=== PATIENT | female | born 1985 | race Caucasian/White ===

== ENCOUNTER 2017-07-17 07:27 | Observation (INO) ==
--- NOTE | 2017-07-17 07:32 | Emergency Department Note ---
Overdose - Lab Data Lab results reviewed: Yes I reviewed the patient's lab results. Result diagrams: 07/17/17 07:44 07/17/17 07:44 Lab Results 07/17/17 07/17/17 07/17/17 Range/Units 07:44 07:44 07:44 WBC 17.2 H (4.3-11.1) K/mcL RBC 4.32 (3.82-4.97) M/mcL Hgb 13.1 (11.5-15.4) g/dL Hct 40.7 (35.3-44.9) % MCV 94.2 (83.0-100.0) fL MCH 30.3 (28.0-33.3) pg MCHC 32.2 (31.6-35.5) g/dL RDW 12.9 (11.5-14.5) % Plt Count 260 (140-400) K/mcL MPV 9.4 (9.4-12.4) fL Immature Gran % 0.7 (0-4) % Seg Neutrophils % 87.7 % Lymphocytes % 7.3 % Monocytes % 3.7 % Eosinophils % 0.4 % Basophils % 0.2 % Neutrophils # 15.1 H (1.6-8.9) K/mcL Lymphocytes # 1.3 (0.6-4.6) K/mcL Monocytes # 0.6 (0.0-1.3) K/mcL Eosinophils # 0.1 (0.0-0.6) K/mcL Basophils # 0.0 (0.0-0.2) K/mcL Sodium 138 (136-145) mEq/L Potassium 3.6 (3.5-4.5) mEq/L Chloride 99 (98-109) mEq/L Carbon Dioxide 23 (19-29) mEq/L BUN 18 (7-20) mg/dL Creatinine 1.02 (0.57-1.11) mg/dL Est GFR ( Amer) > 60 (> 60) Est GFR (Non-Af Amer) > 60 (> 60) BUN/Creatinine Ratio 18 (6-26) Glucose 243 H (70-99) mg/dL Calculated Osmolality 296 (280-300) Calcium 9.1 (8.6-10.8) mg/dL Total Bilirubin 0.5 (0.2-1.2) mg/dL Direct Bilirubin 0.2 (0.0-0.5) mg/dL Indirect Bilirubin 0.3 (0.0-1.2) mg/dL AST 28 (5-34) Units/L ALT 23 (0-55) Units/L Alkaline Phosphatase 45 (38-126) Units/L Serum Total Protein 7.8 (6.0-8.3) g/dL Albumin 4.3 (3.5-5.0) g/dL Globulin 3.5 (2.4-3.5) g/dL Albumin/Globulin Ratio 1.2 (1.1-2.2) Serum , Qual Negative (Negative) Urine Color (Yellow) Urine Clarity (Clear) Urine pH (5.0-8.0) pH Units Ur Specific [place] (1.010-1.025) Urine Protein (Neg-Trace) mg/dL Urine Glucose (UA) (Normal) mg/dL Urine Ketones (Negative) mg/dL Urine Blood (Negative) Urine Nitrite (Negative) Urine Bilirubin (Negative) Urine Urobilinogen (Normal) mg/dL Ur Leukocyte Esterase (Negative) Urine Microscopic RBC (0-3) per hpf Urine Microscopic WBC (0-3) per hpf Ur Squamous Epith Cells (None-Few) per lpf Urine Bacteria (None-Few) per hpf Salicylates < 5.0 L (15-30) mg/dL Urine Opiates Screen (Ttjjxg=482) ng/mL Acetaminophen < 1.0 L (10-30) mcg/mL Ur Barbiturates Screen (Heljfz=449) ng/mL Ur Phencyclidine Scrn (Cutoff=25) ng/mL Ur Amphetamines Screen (Zmbshh=8617) ng/mL U Benzodiazepines Scrn (Zbsmnp=328) ng/mL Urine Cocaine Screen (Cutoff= 300) ng/mL U Marijuana (THC) Screen (Cutoff = 50) ng/mL Ethyl Alcohol < 10 (0-10) mg/dL 07/17/17 07/17/17 Range/Units 08:00 08:00 WBC (4.3-11.1) K/mcL RBC (3.82-4.97) M/mcL Hgb (11.5-15.4) g/dL Hct (35.3-44.9) % MCV (83.0-100.0) fL MCH (28.0-33.3) pg MCHC (31.6-35.5) g/dL RDW (11.5-14.5) % Plt Count (140-400) K/mcL MPV (9.4-12.4) fL Immature Gran % (0-4) % Seg Neutrophils % % Lymphocytes % % Monocytes % % Eosinophils % % Basophils % % Neutrophils # (1.6-8.9) K/mcL Lymphocytes # (0.6-4.6) K/mcL Monocytes # (0.0-1.3) K/mcL Eosinophils # (0.0-0.6) K/mcL Basophils # (0.0-0.2) K/mcL Sodium (136-145) mEq/L Potassium (3.5-4.5) mEq/L Chloride (98-109) mEq/L Carbon Dioxide (19-29) mEq/L BUN (7-20) mg/dL Creatinine (0.57-1.11) mg/dL Est GFR ( Amer) (> 60) Est GFR (Non-Af Amer) (> 60) BUN/Creatinine Ratio (6-26) Glucose (70-99) mg/dL Calculated Osmolality (280-300) Calcium (8.6-10.8) mg/dL Total Bilirubin (0.2-1.2) mg/dL Direct Bilirubin (0.0-0.5) mg/dL Indirect Bilirubin (0.0-1.2) mg/dL AST (5-34) Units/L ALT (0-55) Units/L Alkaline Phosphatase (38-126) Units/L Serum Total Protein (6.0-8.3) g/dL Albumin (3.5-5.0) g/dL Globulin (2.4-3.5) g/dL Albumin/Globulin Ratio (1.1-2.2) Serum , Qual (Negative) Urine Color Yellow (Yellow) Urine Clarity Turbid A (Clear) Urine pH 6.0 (5.0-8.0) pH Units Ur Specific [place] > 1.030 H (1.010-1.025) Urine Protein 100 H (Neg-Trace) mg/dL Urine Glucose (UA) 500 H (Normal) mg/dL Urine Ketones Negative (Negative) mg/dL Urine Blood Small H (Negative) Urine Nitrite Negative (Negative) Urine Bilirubin Negative (Negative) Urine Urobilinogen Normal (Normal) mg/dL Ur Leukocyte Esterase Negative (Negative) Urine Microscopic RBC 3-5 H (0-3) per hpf Urine Microscopic WBC 3-5 H (0-3) per hpf Ur Squamous Epith Cells Many H (None-Few) per lpf Urine Bacteria Many H (None-Few) per hpf Salicylates (15-30) mg/dL Urine Opiates Screen Negative (Ajkxoh=881) ng/mL Acetaminophen (10-30) mcg/mL Ur Barbiturates Screen Negative (Tdgaog=734) ng/mL Ur Phencyclidine Scrn Negative (Cutoff=25) ng/mL Ur Amphetamines Screen Negative (Ogkyhh=3524) ng/mL U Benzodiazepines Scrn Negative (Qyphov=330) ng/mL Urine Cocaine Screen Positive H (Cutoff= 300) ng/mL U Marijuana (THC) Screen Negative (Cutoff = 50) ng/mL Ethyl Alcohol (0-10) mg/dL - Radiology Data Radiology results reviewed: Yes I reviewed the patient's radiology results. Head CT 07/17/17 11:09 IMPRESSION: No acute intracranial abnormality. D/ / Elpidio Lyle MD / Elpidio Lyle MD Interpreting Provider: Elpidio Lyle MD - EKG Data EKG attestation: Yes I reviewed and interpreted this EKG. EKG shows normal: sinus rhythm Rate: normal Rhythm: NSR Interpretation: no acute changes Overdose HPI - General Chief Complaint: ED Overdose Stated Complaint: OD Time Seen by Provider: 07/17/17 07:29 Source: patient, EMS Mode of arrival: EMS Limitations: no limitations Nursing Notes Reviewed: Yes Vital Signs Reviewed: Yes - History of Present Illness HPI Narrative: 32-year-old female has a history of drug use states has not used heroin in over 5 years is on Subutex was found unresponsive by her boyfriend augustusad was called on their arrival patient was unresponsive was given Narcan and she woke up. She states she does not know how she would have gotten the opiates although she was in a group of people and states that maybe somebody slipped her something. 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 Timing confirmed by: caregiver Intent: unknown How Overdose Was Discovered: called family/friend Treatments Prior to Arrival: narcan - Related Data Home Medications Medication Instructions Recorded Confirmed Buprenorphine HCl/Naloxone HCl 1 each SL DAILY 05/12/16 07/13/16 [Suboxone 8 mg-2 mg Sl Film] Mucinex 05/16/17 Tylenol 05/16/17 Previous Rx's Medication Instructions Recorded Albuterol Sulfate [Ventolin Hfa] 2 puff IH Q4-6H PRN #1 hfa.[id number].[id number] 05/16/17 Benzonatate [Tessalon] 200 mg PO TID PRN #30 capsule 05/16/17 Ibuprofen [Motrin] 600 mg PO Q6-8H PRN #30 tab 05/16/17 Phenazopyridine HCl [Pyridium] 200 mg PO TIDAC #30 tab 05/16/17 Sulfamethoxazole/Trimeth DS 1 each PO BID #20 tablet 05/16/17 [Bactrim DS] Allergies Allergy/AdvReac Type Severity Reaction Status Date / Time Penicillins Allergy Rash Verified 05/16/17 16:11 prednisone AdvReac Abdominal Verified 05/16/17 16:11 Pain All systems ED: reviewed and negative except as stated. Constitutional: Denies: fever, chills, weakness, weight change Eyes: Denies: eye pain, eye discharge, vision change ENT ED: Denies: ear pain, throat pain, dental pain, hearing loss, epistaxis, congestion, dysphagia Cardiovascular: Denies: chest pain, palpitations, dyspnea on exertion, edema, syncope Respiratory: Denies: cough, dyspnea, wheezes, hemoptysis, stridor Gastrointestinal: Denies: abdominal pain, nausea, vomiting, diarrhea, constipation, hematemesis, melena, hematochezia Genitourinary: Denies: dysuria, frequency, hematuria, discharge Musculoskeletal: Denies: back pain, neck pain, arthralgia, myalgia Integumentary: Denies: rash, abrasion, lesions Neurological: Denies: headache, weakness, numbness, paresthesias, confusion, abnormal gait, vertigo Psychiatric: Denies: anxiety, depression, suicidal thoughts, homicidal thoughts , auditory hallucinations, visual hallucinations Endocrine: Denies: fatigue Hematological/Lymphatic: Denies: easy bleeding, easy bruising Allergic/Immunologic: Denies: facial swelling, urticaria Past Medical History - Past Medical History Medical history: Reports: non-contributory Surgical history: Reports: no surgical history Psychiatric history: Reports: no psych history SUPERVISOR TOY ASSEMBLY history: Reports: no SUPERVISOR TOY ASSEMBLY history - Social History Smoking Status: Current every day smoker Smokeless Tobacco Status: No Alcohol use: Reports: none Drug use: Reports: other (opiate abuse; taking Buprenorphine) Physical Exam - General Limitations: no limitations General appearance: alert, in no apparent distress - Head Head exam: atraumatic, normocephalic, normal inspection - Eye Eye exam: Present: normal appearance, PERRL, EOMI - ENT ENT exam: normal exam, normal oropharynx, mucous membranes moist - Neck Neck exam: Present: normal inspection, full ROM, trachea midline - Chest Chest inspection: Present: normal inspection, symmetric chest wall rise - Respiratory Respiratory exam: Present: normal lung sounds bilaterally - Cardiovascular Cardiovascular exam: Present: regular rate, normal rhythm, normal heart sounds - Abdominal Exam Abdominal exam: Present: soft, Non-Tender. Absent: tenderness, distention, guarding, rebound, rigidity - Extremities Exam Extremities exam: Present: normal inspection, full ROM. Absent: tenderness, pedal edema - Expanded Lower Extremity Exam Neurovascular/Tendon exam: Absent: motor deficit, sensory deficit, tendon deficit Gait: observed and normal - Back Exam Back exam: Present: normal inspection, full ROM. Absent: tenderness - Neurological Exam Neurological exam: Present: alert, oriented X3 - Psychiatric Psychiatric exam: Present: normal affect, normal mood - Skin Skin exam: Present: warm, dry, intact, normal color Course - Reevaluation(s) Reevaluation #1: 32-year-old who apparently overdosed on cocaine comes in pretty somnolent. Was given Narcan by the squad which apparently woke her up. She continues to be pretty somnolent she will arouse blower to go ahead and admit her. Time: 11:46 - Consultations Consultation #1: Discussed with Dr. Lewis, admit. Time: 11:46 Vital Signs Temperature 97.5 F L 07/17/17 07:28 Pulse Rate 103 07/17/17 07:28 Respiratory Rate 20 07/17/17 07:28 Blood Pressure 132/105 07/17/17 07:28 O2 Sat by Pulse Oximetry 99 07/17/17 07:28 Temperature 97.5 F L 07/17/17 07:28 Pulse Rate 91 07/17/17 11:05 Respiratory Rate 12 07/17/17 11:05 Blood Pressure 103/62 07/17/17 11:05 O2 Sat by Pulse Oximetry 98 07/17/17 11:05 Oxygen Delivery Oxygen Delivery Room Air Disposition Clinical Impression: Cocaine intoxication Qualifiers: Complication of substance-induced condition: uncomplicated Qualified Code(s): F14.920 - Cocaine use, unspecified with intoxication, uncomplicated Disposition: Admitted As Inpatient Condition: Fair Referrals: NONE,PCP [Primary Care Provider] - Forms: ED Satisfaction Letter Time of Disposition: 11:48
[2017-07-17 07:51] LABS: Basophils % 0.2 %; Eosinophils # 0.1 K/mcL (0.0-0.6); Eosinophils % 0.4 %; Hematocrit 40.7 % (35.3-44.9); Hemoglobin 13.1 g/dL (11.5-15.4); Immature Granulocytes % 0.7 % (0-4); Lymphocytes # 1.3 K/mcL (0.6-4.6); Lymphocytes % 7.3 %; Mean Corpuscular HGB Conc 32.2 g/dL (31.6-35.5); Mean Corpuscular Hemoglobin 30.3 pg (28.0-33.3); Mean Corpuscular Volume 94.2 fL (83.0-100.0); Mean Platelet Volume 9.4 fL (9.4-12.4); Monocytes # 0.6 K/mcL (0.0-1.3); Monocytes % 3.7 %; Neutrophils # 15.1 K/mcL (1.6-8.9); Platelet Count 260 K/mcL (140-400); Red Blood Count 4.32 M/mcL (3.82-4.97); Red Cell Distribution Width 12.9 % (11.5-14.5); Segmented Neutrophils % 87.7 %
[2017-07-17 08:03] LABS: Alanine Aminotransferase 23 Units/L (0-55); Albumin 4.3 g/dL (3.5-5.0); Albumin/Globulin Ratio 1.2 (1.1-2.2); Alkaline Phosphatase 45 Units/L (38-126); Aspartate Amino Transferase 28 Units/L (5-34); BUN/Creatinine Ratio 18 (6-26); Bilirubin,Direct 0.2 mg/dL (0.0-0.5); Bilirubin,Indirect 0.3 mg/dL (0.0-1.2); Bilirubin,Total 0.5 mg/dL (0.2-1.2); Blood Urea Nitrogen 18 mg/dL (7-20); Calcium 9.1 mg/dL (8.6-10.8); Carbon Dioxide 23 mEq/L (19-29); Chloride 99 mEq/L (98-109); Globulin 3.5 g/dL (2.4-3.5); Glucose 243 mg/dL (70-99); Osmolality,Calculated 296 (280-300); Potassium 3.6 mEq/L (3.5-4.5); Sodium 138 mEq/L (136-145); Total Protein 7.8 g/dL (6.0-8.3); eGFR For African Americans > 60 (> 60); eGFR For Non-African Americans > 60 (> 60)
[2017-07-17 08:06] LABS: Acetaminophen < 1.0 mcg/mL (10-30); Ethanol < 10 mg/dL (0-10); Salicylate < 5.0 mg/dL (15-30)
[2017-07-17 08:13] LABS: Bilirubin,Urine Negative (Negative); Blood,Urine Small (Negative); Clarity,Urine Turbid (Clear); Color,Urine Yellow (Yellow); Glucose,Urine (UA) 500 mg/dL (Normal); Ketones,Urine Negative (Negative); Leukocyte Esterase,Urine Negative (Negative); Nitrite,Urine Negative (Negative); Protein,Urine 100 mg/dL (Neg-Trace); Specific Gravity,Urine > 1.030 (1.010-1.025); Urobilinogen,Urine Normal (Normal)
[2017-07-17 08:16] LABS: Squamous Epithelial Cell,Urine Many per lpf (None-Few)
[2017-07-17 08:19] LABS: Amphetamine Screen,Urine Negative ng/mL (Cutoff=1000); Barbiturate Screen,Urine Negative ng/mL (Cutoff=200); Benzodiazepines Screen,Urine Negative ng/mL (Cutoff=200); Cannabinoid Screen,Urine Negative ng/mL (Cutoff = 50); Cocaine Screen,Urine Positive ng/mL (Cutoff= 300); Opiate Screen,Urine Negative ng/mL (Cutoff=300); Phencyclidine Screen,Urine Negative ng/mL (Cutoff=25)
[2017-07-17 08:32] LABS: Bacteria,Urine Many per hpf (None-Few)
[2017-07-17] MEDS ORDERED: Ondansetron ODT 4 MG TAB.RAPDIS SL ONE ×2 (09:06→10:02)
--- NOTE | 2017-07-17 15:59 | Internal Med History&Physical ---
Date of Encounter: 07/17/17 Time of Encounter: 15:55 Assessment and Plan (1) Cocaine intoxication Current visit: Yes Status: Acute 32/female Had multiple previous hospitalization for drug overdose. Was recently taking treatment from drug rehabilitation program. 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 After work she was with her friends where she sniffed cocaine. Family is keen to test her for possibility of a fentanyl She was lethargic, drowsy and unable to protect her self in the emergency room and that is the reason she was hospitalized as per the request of emergency room. Patient is alert and awake now. She is alert and oriented 3 now Family requested to keep her overnight. Plan: We will admit her as observation. We will resume home medication. Intravenous fluids normal saline 70 mL/h. Close observation. We will get social media marketer to evaluate and discuss the option regarding rehabilitation programs. Qualifiers: Complication of substance-induced condition: with delirium Qualified Code(s ): F14.921 - Cocaine use, unspecified with intoxication delirium (2) Urinary tract infection Current visit: Yes Status: Acute We will do blood cultures/urine culture. We will start her on IV ceftriaxone. Qualifiers: Urinary tract infection type: acute cystitis Hematuria presence: without hematuria Qualified Code(s): N30.00 - Acute cystitis without hematuria (3) DVT prophylaxis Current visit: Yes Status: Acute SCD Lizabeth decision making: This patient is a [id number] risk of worsening in spite of being on appropriate treatment due to the underlying complex drug multiple overdoses in the past Internal Medicine - H&P: HPI Chief complaint: Drug overdose Admitted From: Emergency Dept Plans for Post Hospital Care: Home History of present illness: Ms. Clemente is a 32 year old female, who does not have a primary care doctor. For the past 6 years patient has multiple times hospitalization for drug overdose. Since 2012 she has not injected any drugs like cocaine/meth/ fentanyl. She was in the rehabilitation program recently. 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 Yesterday after completion of work, she was with her friends and at that time she had tried cocaine after few months of gap. Patient claims that after that episode she does not remember anything and she woke up in the emergency department. Patient 's parents were in the room and as per the patient's parents, friends call 911 as she was completely knocked out after sniffing the cocaine. Patient was taught to the emergency room, basic labs were drawn, CT scan of the head was done which was negative for any acute events. Patient was supposed to go home but in view of the persistent drowsiness emergency room requested to admit the patient for overnight observation. Patient also claims that she has a occasional dysuria. I asked charge nurse Ms. Sewell to talk to patient regarding his is a possibility of a trafficking? Ms. Sewell had extensive chat with the patient and patient denied for the same. Patient is active smoker Family history: Noncontributory Past Med Surg Social Fam HX - Past Medical History Medical history: non-contributory Psychiatric history: no psych history - Past Surgical History Surgical History: no surgical history - Social History Smoking Status: Current every day smoker Smokeless Tobacco Status: No Alcohol use: none Drug use: other (opiate abuse; taking Buprenorphine) Internal Medicine - H&P: Meds Buprenorphine HCl [Subutex] 8 mg SL BID 07/17/17 [History] 3 Allergy/AdvReac Type Severity Reaction Status Date / Time Penicillins Allergy Rash Verified 05/16/17 16:11 prednisone AdvReac Abdominal Verified 05/16/17 16:11 Pain All Systems PM: A 10-system review of systems was performed and is negative for pertinent findings except as documented above in the HPI. - Constitutional Constitutional: chills, excessive sweating, fatigue, night sweats, weakness, no fever(s) - EENT Eyes: no change in vision, no discharge, no pain, no photophobia Ears: no ear discharge, no ear pain, no tinnitus Nose, mouth and throat: no dysphagia, no nasal discharge, no neck pain, no sore throat - Cardiovascular Cardiovascular ROS IM: no chest pain, no diaphoresis, no dyspnea, no lightheadedness, no palpitations, no syncope - Respiratory Respiratory: no cough, no dyspnea, no wheezing, no excessive phlegm production - Gastrointestinal Gastrointestinal: no abdominal pain, no diarrhea, no hematemesis, no hematochezia, no melena, no nausea, no vomiting - Genitourinary Genitourinary: no change in urinary stream, no dysuria, no flank pain, no hematuria - Musculoskeletal Musculoskeletal ROS IM: no numbness, no tingling - Integumentary Integumentary IM: no rash, no unusual bruising - Neurological Neurological ROS: no confusion, no convulsions, no focal weakness, no numbness, no tingling, no tremor(s) - Hematologic/Lymphatic Hematologic/Lymphatic: no easy bruising - Constitutional Vitals: Temp Pulse Resp BP Pulse Ox 99.3 F 76 16 93/52 96 07/17/17 15:52 07/17/17 15:52 07/17/17 15:52 07/17/17 15:52 07/17/17 15:52 General appearance: Present: A&O X 3, pleasant, no acute distress, answers questions appropriately - Head Head exam: Present: atraumatic, normocephalic - Eye Eye exam: Present: PERRL, conjuntiva pink, sclera anicteric Pupils: Present: PERRL - Neck Neck exam general surgery: Present: supple, trachea midline. Absent: lymphadenopathy - Respiratory Respiratory exam: Present: CTAB. Absent: accessory muscle use, rales, rhonchi, wheezes - Cardiovascular Cardiovascular exam: Present: RRR, +S1, +S2. Absent: diastolic murmur, gallop, rubs, systolic murmur - GI/Abdominal GI/Abdominal exam: Present: normal bowel sounds, soft, no peritoneal signs. Absent: distended, tenderness - Extremities Exam Extremities exam: Present: warm, radial pulses palpable and symmetrical. Absent : calf tenderness, cyanotic, pedal edema - Neurological Exam Neurological exam: Present: CN II-XII intact, oriented X3, no focal deficits. Absent: pronater drift, facial droop, speech deficit - Skin Skin exam: Present: dry, intact Internal Med - H&P Results - Labs CBC & Chem 7: 07/17/17 07:44 07/17/17 07:44
[2017-07-17] MEDS ORDERED: Acetaminophen 325 MG TABLET PO PRN (17:25)
[2017-07-17] MEDS ORDERED: Naloxone 0.4 MG/ML INJ IVP PRN (17:25)
[2017-07-17] MEDS ORDERED: 0.9 % Sodium Chloride 1,000 ML IVC SCH (17:30)
[2017-07-17] MEDS ORDERED: Levofloxacin 500 MG/100 ML 500 MG/100 ML BAG IVPB SCH (18:00)
[2017-07-17] MEDS: Nicotine 14 MG PATCH.TD24 TD SCH (18:16)
[2017-07-17] MEDS: *HR* Buprenorphine HCl 8 MG TAB.SUBL SL SCH (21:42)
[2017-07-18 05:02] LABS: Basophils # 0.1 K/mcL (0.0-0.2); Basophils % 0.6 %; Eosinophils # 0.4 K/mcL (0.0-0.6); Eosinophils % 4.9 %; Hematocrit 33.7 % (35.3-44.9); Immature Granulocytes % 0.4 % (0-4); Lymphocytes # 2.6 K/mcL (0.6-4.6); Mean Corpuscular HGB Conc 32.9 g/dL (31.6-35.5); Mean Corpuscular Hemoglobin 30.4 pg (28.0-33.3); Mean Corpuscular Volume 92.3 fL (83.0-100.0); Mean Platelet Volume 9.3 fL (9.4-12.4); Monocytes # 0.7 K/mcL (0.0-1.3); Monocytes % 8.7 %; Platelet Count 194 K/mcL (140-400); Red Blood Count 3.65 M/mcL (3.82-4.97); Segmented Neutrophils % 51.4 %
[2017-07-18 05:19] LABS: Hemoglobin 11.1 g/dL (11.5-15.4)
[2017-07-18 05:27] LABS: Alanine Aminotransferase 23 Units/L (0-55); Albumin/Globulin Ratio 1.2 (1.1-2.2); Alkaline Phosphatase 36 Units/L (38-126); Aspartate Amino Transferase 22 Units/L (5-34); BUN/Creatinine Ratio 26 (6-26); Bilirubin,Total 0.2 mg/dL (0.2-1.2); Blood Urea Nitrogen 22 mg/dL (7-20); Calcium 8.9 mg/dL (8.6-10.8); Carbon Dioxide 31 mEq/L (19-29); Chloride 102 mEq/L (98-109); Chol/HDL Ratio 2.4 (0-4.9); Cholesterol 105 mg/dL (< 200); Globulin 2.7 g/dL (2.4-3.5); Glucose 132 mg/dL (70-99); HDL Cholesterol 44 mg/dL (40-59); LDL Cholesterol,Calculated 44 mg/dL (0-99); Osmolality,Calculated 293 (280-300); Potassium 3.7 mEq/L (3.5-4.5); Sodium 139 mEq/L (136-145); Triglycerides 87 mg/dL (< 150); eGFR For African Americans > 60 (> 60); eGFR For Non-African Americans > 60 (> 60)
[2017-07-18 05:29] LABS: Albumin 3.3 g/dL (3.5-5.0)
[2017-07-18] MEDS: *HR* Buprenorphine HCl 8 MG TAB.SUBL SL SCH (11:16)
[2017-07-18] MEDS: Nicotine 14 MG PATCH.TD24 TD SCH (11:16)
[2017-07-18 14:49] VITALS: BP 100/63
--- NOTE | 2017-07-18 17:40 | Neurology - Consult Note ---
Date of Encounter: 07/18/17 Time of Encounter: 17:37 Assessment and Plan (1) Facial numbness Current Visit: Yes Status: Acute I believe that numbness that this patient is experiencing in the region of the forehead traveling back to the vertex is due to injury of the supraorbital nerve. I believe been compressed secondary to her eyeglasses maybe when she was unconscious. In regard to the numbness is beginning to resolve. I would expect that over time she should get full resolution. I seen no evidence to suggest a more proximal lesion involving the superior orbital fissure, cavernous sinus or brainstem. CT scan of the head was negative. Neurologic examination was only positive for the supraorbital nerve injury otherwise negative. She can be discharged home at your discretion. No additional follow- up or testing or necessary at this juncture. History of Present Illness HPI: Ms. Clemente is a 32 year old female who was seen for neurologic evaluation secondary to numbness and paresthesia of the right forehead. She has had multiple previous hospitalizations secondary to a drug overdoses. She admits that yesterday she was working in a [employer] after which she friends apparently did some cocaine. Afterwards she was lethargic drowsy and was brought to the ED for rapid assessment. She was hospitalized for observation. She is currently back to baseline status however she is concerned about paresthesia of the right forehead going back to about the vertex. She denies any other cranial nerve abnormalities denies numbness tingling or weakness of the arms or legs denies any difficulty with strength balance or coordination. Denies headache. After examining her identified some tenderness in the right supraorbital notch. I suspect that whenever she was unconscious unconscious her eyeglasses may have inadvertently pressed on the fossa and injured the nerve. She already feels however that it is somewhat resolving. She did have a CT scan of the head which was unremarkable. Past Med Surg Social Fam HX - Past Medical History Medical history: non-contributory Psychiatric history: no psych history - Past Surgical History Surgical History: no surgical history - Social History Smoking Status: Current every day smoker Smokeless Tobacco Status: No Alcohol use: none Drug use: cocaine, methamphetamine, IV Drug Use, other Medications and Allergies Buprenorphine HCl [Subutex] 8 mg SL BID 07/17/17 [History] 3 Allergy/AdvReac Type Severity Reaction Status Date / Time Penicillins Allergy Rash Verified 05/16/17 16:11 prednisone AdvReac Abdominal Verified 05/16/17 16:11 Pain All Systems: A 10-system review of systems was performed and is negative for pertinent findings except as documented above in the HPI. Review of Systems: Review of systems is consistent with a history of present illness otherwise negative. Physical Examination - Vital Signs Vital Signs: Initial Vital Signs Temp Pulse Resp BP Pulse Ox 97.5 F L 103 20 132/105 99 07/17/17 07:28 07/17/17 07:28 07/17/17 07:28 07/17/17 07:28 07/17/17 07:28 - Neurologic Detailed motor examination: full strength in all major muscle groups Motor examination - right side: 5/5: deltoids, biceps, triceps, wrist flexion, wrist extension, hydroelectric plant mechanical engineer, hip flexors, tibialis Anterior, quadriceps, toe extension (EHL), plantarflexion Motor examination - left side: 5/5: deltoids, biceps, triceps, wrist flexion, wrist extension, hip flexors, hydroelectric plant mechanical engineer, quadriceps, tibialis Anterior, toe extension (EHL), plantarflexion Mental Status Examination: awake, alert, oriented to person, oriented to place, oriented to time, follows commands appropriately, answers questions appropriately, no agnosia, no aphasia, no aproxia Cranial nerve examination: PERRL, EOMI, visual garrido intact, corneal reflexes brisk symmetrically, mastication intact, no facial asymmetry is present, no dysarthria, hearing is intact symmetrically, soft palate elevates bilaterally upon phonation, gag reflex intact, flexes SCM and trapezius muscles symmetrically with full power, tongue protrudes midline, no atrophy or facial fasiculations present Cranial Nerve Exam: facial hypesthesia: Right (Primarily in the right forehead traveling back to the vertex in the region of the supraorbital nerve.) Cerebellar examination: no dysmetria, performs finger to nose and heel to rivera symmetrically without ataxia, no gait ataxia, no truncal ataxia, no difficulty with rapid alternating movements Results - Laboratory Findings CBC and BMP: 07/18/17 04:51 07/18/17 04:51 Abnormal lab findings: Abnormal lab results RBC 3.65 M/mcL (3.82-4.97) L 07/18/17 04:51 Hgb 11.1 g/dL (11.5-15.4) L D 07/18/17 04:51 Hct 33.7 % (35.3-44.9) L 07/18/17 04:51 MPV 9.3 fL (9.4-12.4) L 07/18/17 04:51 Carbon Dioxide 31 mEq/L (19-29) H 07/18/17 04:51 BUN 22 mg/dL (7-20) H 07/18/17 04:51 Glucose 132 mg/dL (70-99) H 07/18/17 04:51 Alkaline Phosphatase 36 Units/L (38-126) L 07/18/17 04:51 Albumin 3.3 g/dL (3.5-5.0) L D 07/18/17 04:51 Urine Clarity Turbid (Clear) A 07/17/17 08:00 Ur Specific [place] > 1.030 (1.010-1.025) H 07/17/17 08:00 Urine Protein 100 mg/dL (Neg-Trace) H 07/17/17 08:00 Urine Glucose (UA) 500 mg/dL (Normal) H 07/17/17 08:00 Urine Blood Small (Negative) H 07/17/17 08:00 Urine Microscopic RBC 3-5 per hpf (0-3) H 07/17/17 08:00 Urine Microscopic WBC 3-5 per hpf (0-3) H 07/17/17 08:00 Ur Squamous Epith Cells Many per lpf (None-Few) H 07/17/17 08:00 Urine Bacteria Many per hpf (None-Few) H 07/17/17 08:00 Salicylates < 5.0 mg/dL (15-30) L 07/17/17 07:44 Acetaminophen < 1.0 mcg/mL (10-30) L 07/17/17 07:44 Urine Cocaine Screen Positive ng/mL (Cutoff= 300) H 07/17/17 08:00 Consult Discharge Plan - Plan Referrals: NONE,PCP [Primary Care Provider] -
--- NOTE | 2017-07-18 17:59 | Discharge Summary ---
Date of Encounter: 07/18/17 Time of Encounter: 17:56 - Discharge Diagnosis (1) Cocaine intoxication Priority: Primary Status: Acute Qualifiers: Complication of substance-induced condition: with delirium Qualified Code(s ): F14.921 - Cocaine use, unspecified with intoxication delirium (2) Urinary tract infection Priority: Primary Status: Acute Qualifiers: Urinary tract infection type: acute cystitis Hematuria presence: without hematuria Qualified Code(s): N30.00 - Acute cystitis without hematuria (3) DVT prophylaxis Priority: Secondary Status: Acute - Discharge Medications Prescriptions: Ciprofloxacin [Cipro] 500 mg PO BID #7 tablet Nicotine Patch [Nicoderm] 14 mg TD DAILY #7 patch.td24 Home Medications: Buprenorphine HCl [Subutex] 8 mg SL BID 07/17/17 [History] Ciprofloxacin [Cipro] 500 mg PO BID #7 tablet 07/18/17 [Rx] Nicotine Patch [Nicoderm] 14 mg TD DAILY #7 patch.td24 07/18/17 [Rx] Allergies/Adverse Reactions: 3 Allergy/AdvReac Type Severity Reaction Status Date / Time Penicillins Allergy Rash Verified 05/16/17 16:11 prednisone AdvReac Abdominal Verified 05/16/17 16:11 Pain Date of admission: 07/17/17 13:28 Primary care physician: PCP NONE Consults: 07/17/17 17:30 Consult to [facility] [CONS] Routine Reason for SW Consult: drug abuse 07/18/17 07:58 Consult to Neurology [CONS] Routine Consulting Provider: [facility] Reason for Consult: numbness over right forehead. Call Completed: Yes Discharging clinician: Bertrand Ramírez - Patient Status Disposition: Home, Self-Care Condition: Fair Functional capacity at discharge: independent ambulation Overall status at discharge: patient is progressing back to baseline - Discharge Instructions Follow Up With: NONE,PCP [Primary Care Provider] - Gerard Starr DO [Partnered Physician] - - Diet and Activity Activity: increase activity as tolerated Diet: low fat, low cholesterol Interval History: Ms. Clemente is a 32 year old female, who does not have a primary care doctor. For the past 6 years patient has multiple times hospitalization for drug overdose. Since 2012 she has not injected any drugs like cocaine/meth/ fentanyl. She was in the rehabilitation program recently. 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 Yesterday after completion of work, she was with her friends and at that time she had tried cocaine after few months of gap. Patient claims that after that episode she does not remember anything and she woke up in the emergency department. Patient 's parents were in the room and as per the patient's parents, friends call 911 as she was completely knocked out after sniffing the cocaine. Patient was taught to the emergency room, basic labs were drawn, CT scan of the head was done which was negative for any acute events. Patient was supposed to go home but in view of the persistent drowsiness emergency room requested to admit the patient for overnight observation. Patient also claims that she has a occasional dysuria. I asked charge nurse Ms. Sewell to talk to patient regarding his is a possibility of a trafficking? Ms. Sewell had extensive chat with the patient and patient denied for the same. Patient is active smoker Hospital course: Patient was hospitalized. She was started on IV antibiotics. Patient responded well to IV fluids and IV antiemetics. She does not not have any more dysuria/abdominal pain/increased frequency of micturition. This morning patient woke up and says she has a numbness over her forehead. Patient requested for neurology evaluation. Neurology evaluated the patient and is of opinion that there is a possibility of a compression of the supraorbital nerve. This is the most benign process. Neurology spoke with patient at length. Patient is satisfied now. Plan: Patient can go home. forest and conservation worker social worker assistant at length has spoken with patient and patient's family. All the possible resources for inpatient/outpatient drug rehabilitation has been provided to the patient. Patient will follow up in the residency clinic. Patient will follow up with neurology Dr. Starr. At the time of discharge all questions answered. - Time Spent with Patient Total time spent providing and/or coordinating discharge services: - Constitutional Vitals: Temp Pulse Resp BP Pulse Ox 98.6 F 83 16 100/63 98 07/18/17 14:48 07/18/17 14:48 07/18/17 14:48 07/18/17 14:48 07/18/17 14:48 General appearance: Present: A&O X 3, pleasant, no acute distress, answers questions appropriately - Head Head exam: Present: atraumatic, normocephalic - Eye Eye exam: Present: PERRL, conjuntiva pink, sclera anicteric Pupils: Present: PERRL - Neck Neck exam general surgery: Present: supple, trachea midline. Absent: lymphadenopathy - Respiratory Respiratory exam: Present: CTAB. Absent: accessory muscle use, rales, rhonchi, wheezes - Cardiovascular Cardiovascular exam: Present: RRR, +S1, +S2. Absent: diastolic murmur, gallop, rubs, systolic murmur - GI/Abdominal GI/Abdominal exam: Present: normal bowel sounds, soft, no peritoneal signs. Absent: distended, tenderness - Extremities Exam Extremities exam: Present: warm, radial pulses palpable and symmetrical. Absent : calf tenderness, cyanotic, pedal edema - Neurological Exam Neurological exam: Present: CN II-XII intact, oriented X3, no focal deficits. Absent: pronater drift, facial droop, speech deficit - Skin Skin exam: Present: dry, intact
--- NOTE | 2017-07-18 20:04 | Electrocardiograph Report ---
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
== END 2017-07-18 18:24 | disposition home or self-care (01) ==
LOC: EMEROO 07:27 → 3BNU 07:27
PROVIDERS: ADMIT Internal Medicine; ATTEND Registered Nurse